=== PATIENT | female | born 1995 | race Caucasian/White ===

== ENCOUNTER 2025-05-05 19:24 | Emergency (ER) | payer OTHER ==
[~2025-05-05] VITALS: Ht 162.6 cm; Wt 57.0 kg
[2025-05-05 19:54] VITALS: TEMP 37.5; O2SAT 99
[2025-05-05 20:24] LABS: CLARITY URINE CLEAR (CLEAR); COLOR URINE YELLOW (YELLOW); GLUCOSE URINE NEGATIVE (NEGATIVE); KETONES URINE NEGATIVE (NEGATIVE); LEUKOCYTE ESTERASE URINE NEGATIVE (NEGATIVE); NITRITE URINE NEGATIVE (NEGATIVE); OCCULT BLOOD URINE NEGATIVE (NEGATIVE); PH URINE 7.5 (4.5-8.0); PROTEIN URINE NEGATIVE (NEGATIVE); SPECIFIC GRAVITY URINE 1.016 (1.005-1.030); UROBILINOGEN URINE 0.2 E.U./dL (0.2-1.0)
[2025-05-05 21:34] LABS: HEMATOCRIT. 44.0 % (36.0-48.0); HEMOGLOBIN. 14.9 g/dL (12.0-16.0); MEAN PLATELET VOLUME 8.1 fl (7.4-10.4); PLATELET 201 x1000/uL (130-400); RED BLOOD CELL COUNT 4.89 mill/uL (4.2-5.4); RED CELL DISTRIBUTION WIDTH 12.5 % (11.6-14.6)
[2025-05-05 21:50] LABS: CREATININE 0.9 mg/dL (0.6-1.0)
[2025-05-05 21:51] LABS: HCG SCREEN NEGATIVE; UREA NITROGEN BLOOD 10 mg/dL (9-23)
[2025-05-05 21:52] LABS: TROPONIN I HIGH SENSITIVITY < 4 ng/L (3.0-34)
[2025-05-05 21:53] LABS: ASPARTATE AMINOTRANSFERASE 18 IU/L (<34); BILIRUBIN DIRECT 0.3 mg/dL (<=3.0); BILIRUBIN TOTAL 1.3 mg/dL (0.1-1.0); PROTEIN TOTAL 6.7 g/dL (6.0-8.3)
[2025-05-05 22:03] LABS: EOSINOPHILS % MANUAL 3.0 % (0.0-5.0); LYMPHOCYTES % MANUAL 5.0 % (20.0-60.0); MONOCYTES % MANUAL 1.0 % (2.0-8.0); NEUTROPHILS % MANUAL 91.0 % (45.0-75.0); PLATELET ESTIMATE NORMAL
[2025-05-05] MEDS: METOCLOPRAMIDE HCL 10MG/2ML VIAL IV ONE (22:15)
[2025-05-05] MEDS: KETOROLAC 15MG/ML VIAL IV ONE (22:15)
[2025-05-05] MEDS: IOHEXOL-300 100 ML BOTTLE ONE (23:36)
[2025-05-05 23:39] VITALS: BP 100/63; PULSE 98; RESP 18; O2SAT 98
== END 2025-05-05 23:47 | disposition home or self-care (01) ==
LOC: ER 19:24 → CMPBEDREQ 05-06 08:04
DX: R10.31 Right lower quadrant pain (principal); Z79.3 Long term (current) use of hormonal contraceptives
CPT/HCPCS: 99285; 74177; 96374; 96361; 96375; 80076; 80048; 81003; 81025; 84703; 83690; 85025; 84484; 36415; J1885; Q9967; J2765